=== PATIENT | female | born 1995 | race African-American/Black ===

== ENCOUNTER 2020-08-25 19:19 | Emergency (ER) | payer BC ==
[~2020-08-25] VITALS: Ht 162.6 cm; Wt 82.6 kg
[2020-08-25 19:53] LABS: URINE BILIRUBIN NEGATIVE (Negative); URINE BLOOD NEGATIVE (Negative); URINE CLARITY CLEAR; URINE COLOR YELLOW; URINE GLUCOSE-RANDOM* NEGATIVE (Negative); URINE KETONES NEGATIVE (Negative); URINE LEUKOCYTES-REFLEX NEGATIVE (Negative); URINE NITRITE-REFLEX NEGATIVE (Negative); URINE PROTEIN (DIPSTICK) NEGATIVE (Negative); URINE SPECIFIC GRAVITY 1.025 (1.005-1.035); URINE UROBILINOGEN 0.2 E.U./dl (0.2-1.0)
[2020-08-25 20:15] LABS: ABSOLUTE NEUTROPHILS 4.3 thou/uL (1.4-8.2); BASOPHILS 0.9 % (0.0-2.0); HEMATOCRIT 39.2 % (37.0-47.0); HEMOGLOBIN 12.8 gm/dL (12.0-15.0); LYMPHOCYTES 36.9 % (24.0-44.0); MCH 29.9 pg (26.0-34.0); MCHC 32.7 g/dL (28.0-37.0); MCV 91.3 fL (80.0-100.0); MONOCYTES 11.1 % (1.0-8.0); PLATELET COUNT 206 thou/uL (150-400); POLYS 49.1 % (36.0-66.0); RBC 4.29 mil/uL (4.20-5.00); RDW 12.6 % (10.5-14.5); WBC 8.7 thou/uL (4.0-11.0)
[2020-08-25 20:25] LABS: ANION GAP 10 mmol/L (7-16); BUN 13 mg/dL (7-18); CALCIUM 9.1 mg/dL (8.5-10.1); CHLORIDE 101 mmol/L (98-107); CO2 24 mmol/L (21-32); CREATININE 0.8 mg/dL (0.6-1.0); GLUCOSE 84 mg/dL (74-106); POTASSIUM 3.7 mmol/L (3.5-5.1); SODIUM 135 mmol/L (136-145)
[2020-08-25 20:34] LABS: TROPONIN-I <0.06 ng/mL (<0.06)
[2020-08-25] MEDS ORDERED: MOBIC7.5 MG PO (20:48)
[2020-08-25 21:30] VITALS: BP 117/73
--- NOTE | 2020-08-26 13:05 | EKG ---
[place] [address] [facility] [place] [address] ELECTROCARDIOGRAM REPORT Name: ROBERTO VILCHIS Room #: DEP GENESIS Saenz#: [id number] Admission: 08/25/20 Attend Phys: Discharge: 08/25/20 Date of : [birth year] Report #: [id number] [facility] ED Test Date: 2020-08-25 Test Time: 19:37:25 Pat Name: ROBERTO VILCHIS Department: Room: Gender: [employer] Maintainer: [id number] : 1995 Requested By: Juice Elias Order Number: [id number] MD: Luther Caro Measurements Intervals [place] Rate: 79 P: 67 WI: 138 QRS: 57 QRSD: 80 T: 31 QT: 364 QTc: 418 Interpretive Statements Sinus rhythm Probable left atrial enlargement Abnormal Q suggests anterior infarct Anteroseptal infarct, age indeterminate No previous ECG available for comparison Electronically Signed On 08-26-2020 13:05:45 CDT by Luther Caro [email or web address] <ELECTRONICALLY SIGNED> By: Luther Caro MD 08/26/20 1305 1937 36 Luther Caro MD /DIVYA
== END 2020-08-25 21:30 | disposition home or self-care (01) ==
LOC: ER 19:19
PROVIDERS: Nurse Practitioner
DX: R07.89 Other chest pain (principal)